=== PATIENT | female | born 1985 | race Two or more races ===

== ENCOUNTER 2024-08-18 06:07 | Day surgery (SDC) | payer BC, SELFPAY ==
--- NOTE | 2024-08-15 06:01 | W.CON.GYNONC ---
Chief Complaint
-
pelvic mass
History of Present Illness
This�is�a�38�year�old��WF�LMP�04/28/2024�who�was�referred�to�us�for�evaluation�left�ovarian�cyst.�Over�a�year�ago�she developed�LLQ�pain,�symptoms�of�belching�and�also�lower�abdominal�discomfort.� 04/01/23
23�MRI�of�the�pelvis�was�also�done�at[facility]�indicating�normal�uterus,�endometrial�thickness�at�8�mm.�Hemorrhagic�4�cm left�ovarian�cyst.
[facility]�reveals�uterus�midposition�8�cm�in�size,�right�ovary
3.4�cm,�left�ovary�8.7�cm,�the�ovary�contains�low�level�internal�echoes�and�echogenic�mural�nodule�measuring�1.2�cm,�the�internal
echo�demonstrated�fluid/fluid�level�compatible�with�blood�clot.�Overall�impression�was�that�this�is�probably�suggestive�of�active endometrioma.�
Follow�up�ultrasound�Barby��same�institution�reveals�uterus�to�be�9.1�x�3.2�x�5.1�cm,�endometrial�complex�is�8�mm,�right
ovary�is�3.4�cm�left�ovary�is�now�9.2�x�8.4�x�6.1�cm.�There�is�continued�size�increase�in�a�unilocular�cystic�lesion�with�low�level internal�echoes.
Patient�had�a�visit�with�Dr.�Mariam�Doe�May�,�notes�indicate�patient�is�interested�in�genetic�counseling�and�testing,�she
had�declined�STD�testing,�she�continues�to�have�monthly�menstrual�cycles,�lasting�4�to�5�days,�she�gets�mild�left�lower�quadrant discomfort.
PMH�Unremarkable
PSH:�Breast�augmentation,�LN�biopsy�neck
FHx:�Mother�with�primary�peritoneal�ca,�BRCA�negative,�being�treated�at�[facility]
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
Medical History
Allergies
Allergies reflect when allergies were last updated in [facility].
Physical Exam
Physical Exam
Pelvic�Examination:�Dinkey Driver�present External�normal�labia,�urethra,�anus.� Vagina:�Normal�mucosa. Cervix:�multip,�normal�patent�os�normal�appearance,�no�discharge. Uterus:�normal�size,�anteriorly�displaced.�
Adnexa:�There�is�a�mass�in�midline�behind�the�uterus,�mobile,�sitting�in�the�cul�de�sac,�10�cm�approximately,�when�touched,�patient feels�rectal�tenderness RVE:�no�masses�or�nodularity�in�lumen,�mass�in�cul�de�sac�palpable
General:�Well�developed,�well�nourished�patient.�In�no�acute�distress. Head:�Atraumatic�and�normocephalic. Eyes:�EOMI.�Sclerae�are�anicteric. Ears,�Nose,�Throat,�and�Mouth:�Normal�oral�mucosa�and�oropharynx.
Neck:�No�thyromegaly.�No�cervical�lymphadenopathy. Lungs:�Clear�to�auscultation.�Good�air�movement�bilaterally.
Cardiac:�Regular�rate.�Regular�rhythm.�No�murmurs�appreciated.
Right�Breast:�No�masses�or�dimpling.�No�nipple�discharge. Left�Breast:�No�masses�or�dimpling.�No�nipple�discharge. Abdomen:�Abdomen�is�soft.�Non�tender�to�palpation.�Non�distended.
Extremities:�No�edema. Hematologic/Lymphatic:�No�palpable�lymphadenopathy. Musculoskeletal:�Normal�range�of�motion.�Strength�and�Tone�are�normal.
Skin:Non�jaundiced.�No�petechia.�No�purpura.
Neurologic:�Speech�is�fluent.�Normal�gait�and�station.�Cranial�nerves�intact.
Results
-
,05/04/24�GG956=30 ,05/04/24�CEA=<2.0 05/04/24�B�HCG=<5 05/04/24�YEBOTH=182�7�POTASSIUM=4.4�7�VHRVNSMF=294�7�GLUCOSE=90�7�BUN=11�7 CREAT=0.68�7�CALCIUM=10.2�Total�Protein=7.4,�05/04/24�ALBUMIN=4.3
05/04/24�EPV=622,�05/04/24�ALK�PHOS=93,�05/04/24�AST=12,�05/04/24�ALT=9 05/04/24�PROTIME=10.3,�05/04/24�INR=1.0, Imaging�Results CT�pelvis�performed�[facility]�reveals�upper�abdomen�including�liver�gallbladder�spleen
pancreas�adrenal�glands�to�be�normal,�there�is�right�sided�mild�hydronephrosis.�Bowels�appendix�and�abdominal�cavities�otherwise
normal.�Continues�to�show�8.2�cm�low�density�mass�suspected�endometrioma�and�posterior�central�pelvis�corresponding�to�the findings�on�ultrasound.�There�is�no�evidence�of�lymphadenopathy.
Impression / Plan
-
40�yo�with�gradually�enlarging�Left�ovary�mass,�now�at�8�9�cm.�cyst�is�complex�and�has�some�features�of�blood�clot/hemorrhage, maybe�endometrioma.� Given�size,�complexity,�increasing�size�and�symptoms,�I�do�recommend�surgical�intervention.�
I�discussed�robotic�assisted�laparoscopic�LSO�with�washings.�
Because�of�maternal�history�of�peritoneal�cancer�right�salpingectomy will�be�added. specimen�will�be�sent�for�frozen�section.
�Patient�has�not�desirous�of�childbearing,�she�is�okay�with�hysterectomy�if�needed.�
Goal�is to�try�to�preserve�the�uterus�cervix�and�right�ovary.�She�does�understand�that�additional�surgery�may�be�necessary�if�malignancy�is identified�including�comprehensive�staging.
Risks�of�surgery�discussed�including�infection,�bleeding,�injury�to�adjacent�organs�DVT/PE�and�cardiovascular�problems. [facility]. She�is�advised�to�see�her�PCP�for�medical�evaluation�pre�op�including�ECG,�p
[2024-08-16 10:30] VITALS: BMI 27.7
[2024-08-18] VITALS (9 sets, daily range): BP systolic 110–142; BP diastolic 69–93; BMI 27.7
[2024-08-18] MEDS: TYLENOL 1000 MG PO (06:34)
[2024-08-18] MEDS: NEURONTIN 300 MG PO (06:35)
[2024-08-18] MEDS: CELEBREX 200 MG PO (06:35)
[2024-08-18] MEDS: HEPARIN 5000 UNITS SC (06:35)
--- NOTE | 2024-08-18 09:16 | OR.RPT ---
Operative Report
Operative Report
Date of procedure: August 18, 2024
Preoperative diagnosis: Left ovarian mass, family history ovarian cancer
Postoperative diagnosis: Left ovary with hemorrhagic cyst
Procedure:
Robotic assisted left salpingo-oophorectomy, pelvic washings, right salpingectomy with preservation of uterus cervix and right ovary,
omental biopsy,
mini laparotomy for extraction of specimen
TAP Block
Anesthesia: General Endotracheal intubation
Surgeon:Tio Bermeo MD
Assist: Zakiya Lassiter PA-C, El SANCHEZ
Estimated blood loss 50 cc
Complication: None
Procedure in detail: This patient was brought to the operating room for definitive management of left ovarian mass. Upon arrival to the operating room she was placed in supine position general anesthesia was administered, she was intubated without
any difficulty and placed in lithotomy position using yellowfin stirrups, she was prepped on the abdomen perineum and vagina. Arms were wrapped with foam and tucked along the patient's sides and shoulders and head were properly padded and
supported. The patient was draped. Timeout procedure was carried out. She received antibiotics. Saul catheter was placed under sterile conditions in the bladder. The uterine manipulator with 3.5 cm NATALIE ring was placed around the cervix into
the uterine cavity. We turned our attention to the abdomen. Veress needle was inserted just below the right subcostal margin. Insufflation with CO2 gas was performed up to pressure of 15 mmHg. 8 mm robotic ports were introduced 25 cm cephalad to
symphysis pubis and epigastrium as well as right and left upper quadrant and right and left lateral abdomen.
Tap block was performed using combination of ropivacaine and Decadron injected equally 2 fingerbreadths below the lateral aspect of right and left subcostal margin as well as lateral mid abdomen under direct visualization.
Inspection of the peritoneal cavity reveals peritoneal surfaces to be smooth, right and left diaphragms are normal without any evidence of implants. Liver spleen stomach omentum are normal. Visualized loops of bowel including appendix are normal.
The right ovary and tube appeared normal and physiologic in nature. Uterus is unremarkable. There is a 10 cm mass arising from the left ovary filling the posterior cul-de-sac with some filmy adhesions to the posterior uterus. There is no obvious
excrescences on its capsule.
Pelvic washings were collected after the robotic system was docked. The right fallopian tube was grasped mesosalpinx was sealed and divided and the entire fallopian tube was removed and submitted to pathology. Attention was turned to the left side
where the peritoneum adjacent to the IP ligament was opened retroperitoneum was explored the course of the ureter was visualized IP ligament was sealed 3 times and divided tube and ovary was detached from the uterus by ligation of utero-ovarian
ligament and fallopian tube attachment to the uterus and placed in a bag.
We made a 5 cm incision in the suprapubic region and placed an Andrew retractor within it. The endoscopic bag was introduced through this incision and the left tube and ovary was placed within this bag and extracted through this system. The cyst
had to be drained of dark hemorrhagic fluid. Gross examination of the cyst does not reveal any evidence of implants or excrescences, frozen sections reveal hemorrhagic cyst. No evidence of cancer was identified.
Infracolic portion of the omentum was removed and sampled and omental biopsy was removed through the suprapubic incision. We went ahead and irrigated the pelvis all operative sites were hemostatic. Robotic system was undocked pneumoperitoneum was
released. Andrew retractor was removed the fascia at the lower abdominal incision was closed with STRATAFIX suture in 2 layers. Subcutaneous tissue was hemostatic, all ports were removed and all incisions were closed with subcuticular suture using
4-0 Monocryl. Dermabond was applied to all incisions. Saul catheter and uterine manipulator was removed. Patient was awakened extubated and returned back to recovery room stable awake and extubated condition. I did not perform any additional
staging procedures and I did not remove uterus and the other ovary because there was no evidence of malignancy and the patient was desirous of retaining fertility options. Counts of laps instruments and needle was correct x 2. I was present and
scrubbed for entire procedure as dictated above.
Disposition: To PACU, stable awake extubated
== END 2024-08-18 12:06 | disposition home or self-care (01) ==
LOC: SDS 06:07
PROVIDERS: ATTENDING PHYSICIAN Obstetrics & Gynecology Gynecologic Oncology; FAMILY PHYSICIAN Family Medicine
DX: N80.102 Endometriosis of left ovary, unspecified depth (principal); N70.91 Salpingitis, unspecified; R19.04 Left lower quadrant abdominal swelling, mass and lump; K55.1 Chronic vascular disorders of intestine; Z80.41 Family history of malignant neoplasm of ovary
CPT/HCPCS: 58661; 88302; 88305; 88307; 88332; 36415; 86850; 86900; 86901; 88112; 88331; 88341; 88342